=== PATIENT | female | born 1975 | race Caucasian/White ===

== ENCOUNTER 2019-08-31 09:30 | Emergency (ER) | payer BC ==
[2019-08-31] MEDS ORDERED: Acetaminophen/HYDROcodone 325-5 MG Tab PO ONE (09:59)
[2019-08-31] MEDS ORDERED: Ondansetron 4 MG Tab.DIS PO ONE (09:59)
--- NOTE | 2019-08-31 10:49 | EDM.PDOC ---
ED HPI GENERAL MEDICAL PROBLEM - General Chief Complaint: Headache Stated Complaint: HEAD AND BACK INJURY Time Seen by Provider: 08/31/19 09:51 Source of Information: Reports: Patient History Limitations: Reports: No Limitations - History of Present Illness INITIAL COMMENTS - FREE TEXT/NARRATIVE: The patient presents from the walk in clinic for a fall, headache, neck and low back pain. She was walking out to her garage at her apartment and she slipped on the ice and she landed on her buttock and head. She did have a positive LOC. She has a headache now with neck pain. She has low back pain. She had a lumbar fusion about 1 year ago. She also has some pain in her buttocks. She has left elbow pain. She has some nausea. She has no chest pain or abdominal pain. She has no numbness or weakness. Onset: Sudden Duration: Hour(s): Location: Reports: Head, Neck, Back Quality: Reports: Sharp Severity: Moderate Improves with: Reports: Immobilization Worsens with: Reports: Movement Context: Reports: Trauma (Slipped and fell on the ice) Associated Symptoms: Reports: Headaches, Nausea/Vomiting. Denies: Chest Pain, Cough, Fever/Chills, Shortness of Breath Headache Pain Score (Numeric/FACES): 8 - Related Data Allergies Allergy/AdvReac Type Severity Reaction Status Date / Time No Known Allergies Allergy Verified 08/31/19 09:50 Home Meds: Home Meds Ondansetron [Zofran ODT] 4 mg PO Q6H PRN #20 tab.dis 08/31/19 [Rx] Social & Family History - Tobacco Use Smoking Status *Q: Never Smoker ED ROS GENERAL - Review of Systems Review Of Systems: See Below Constitutional: Reports: No Symptoms HEENT: Reports: No Symptoms Respiratory: Reports: No Symptoms Cardiovascular: Reports: No Symptoms Endocrine: Reports: No Symptoms GI/Abdominal: Reports: Nausea. Denies: Abdominal Pain, Vomiting : Reports: No Symptoms Musculoskeletal: Reports: Neck Pain, Back Pain Skin: Reports: No Symptoms Neurological: Reports: Headache. Denies: Numbness, Weakness Psychiatric: Reports: No Symptoms ED EXAM, HEAD INJURY - Physical Exam Exam: See Below Exam Limited By: No Limitations General Appearance: Alert, No Apparent Distress Head: Other (Pain upon palpation and edema to the left occipital region) Eyes: Bilateral Eye: EOMI, PERRL Ears: Normal External Exam Nose: Normal Inspection Neck: Tenderness (pain upon palpation to the mid cervical spine) Respiratory: No Respiratory Distress, Lungs Clear, Normal Breath Sounds Cardiovascular: Regular Rate, Rhythm, No Edema, No Murmur GI/Abdominal Exam: Soft, Non-Tender, No Organomegaly, No Mass Back Exam: Other (Pain upon palpation to the lumbar spine into each buttock) Extremities: Other (Pain upon palpation to the left elbow with good sensation and pulses distally) Neurologic: No Motor/Sensory Deficits, Alert, Oriented x 3 Course - Vital Signs Last Recorded V/S: Last Vital Signs Temp 97.8 F 08/31/19 09:40 Pulse 79 08/31/19 09:40 Resp 16 08/31/19 09:40 BP 131/79 08/31/19 09:40 Pulse Ox 100 08/31/19 09:40 - Orders/Labs/Meds Meds: Medications Discontinued Medications Generic Name Dose Route Start Last Admin Trade Name Freq PRN Reason Stop Dose Admin Hydrocodone Bitart/Acetaminophen 2 tab 08/31/19 09:59 08/31/19 10:10 [place] 325-5 Mg PO 08/31/19 10:00 2 tab ONETIME ONE Administration Ondansetron HCl 4 mg 08/31/19 09:59 08/31/19 10:09 Zofran Odt PO 08/31/19 10:00 4 mg ONETIME ONE Administration - Re-Assessments/Exams Free Text/Narrative Re-Assessment/Exam: 08/31/19 10:48 I have ordered a CT of her head, cervical spine and lumbar spine with an x-ray of her left elbow. I also ordered some hydrocodone and zofran. 08/31/19 11:[address] of her lumbar spine shows mild degenerative change. Previous surgery at L4-L5. No acute fracture or acute subluxation is seen. The CT of her head shows sinus findings which are most likely chronic. No acute intracranial abnormality is appreciated. The CT of her head shows minimal degenerative change. Nothing acute is appreciated on CT study of the cervical spine. The x- ray of her elbow shows nothing acute. I feel she does have a concussion. Departure - Departure Time of Disposition: 11:45 Disposition: Home, Self-Care 01 Condition: Good Clinical Impression: Fall Qualifiers: Encounter type: initial encounter Qualified Code(s): W19.XXXA - Unspecified fall, initial encounter Head injury Qualifiers: Encounter type: initial encounter Qualified Code(s): S09.90XA - Unspecified injury of head, initial encounter Concussion Qualifiers: Encounter type: initial encounter Loss of consciousness presence/duration: with LOC of 30 min or less Qualified Code(s): S06.0X1A - Concussion with loss of consciousness of 30 minutes or less, initial encounter Cervical strain, acute Qualifiers: Encounter type: initial encounter Qualified Code(s): S16.1XXA - Strain of muscle, fascia and tendon at neck level, initial encounter Lumbar strain Qualifiers: Encounter type: initial encounter Qualified Code(s): S39.012A - Strain of muscle, fascia and tendon of lower back, initial encounter Contusion of left elbow Qualifiers: Encounter type: initial encounter Qualified Code(s): S50.02XA - Contusion of left elbow, initial encounter - Discharge Information *PRESCRIPTION DRUG MONITORING PROGRAM REVIEWED*: No *COPY OF PRESCRIPTION DRUG MONITORING REPORT IN PATIENT PRETTY: No Prescriptions: Ondansetron [Zofran ODT] 4 mg PO Q6H PRN #20 tab.dis PRN Reason: Nausea\vomiting Referrals: Bob Jurado MD [Primary Care Provider] - 1 Week Forms: ED Department Discharge, ED Return to Work/School Form Additional Instructions: Take motrin or tylenol for pain. Take the zofran every 6 hours as needed for nausea and vomiting. Rest and ice the areas that hurt for 15 minutes 3 times per day for 2 days. Please return if you are worse.
--- NOTE | 2019-08-31 11:07 | CT ---
Head CT Technique: Multiple axial sections through the brain were obtained. Intravenous contrast was not utilized. Comparison: No prior intracranial imaging is available. Findings: Ventricles along with basal cisterns and sulci over the convexities are within normal limits for the patient's age. Small cortical calcification is noted overlying the right parietal convexity. No abnormal parenchymal densities are otherwise seen. No evidence of intracranial hemorrhage. No midline shift or mass effect is seen. Bone window settings were reviewed which show mild mucosal thickening within the ethmoid and right maxillary sinus as well as left frontal sinus. No air-fluid levels are seen within the visualized sinuses. Visualized mastoid sinuses are clear. No acute calvarial abnormality is appreciated. Impression: 1. Sinus findings which are most likely chronic. 2. No acute intracranial abnormality is appreciated. Diagnostic code #2 This report was dictated in [place] Standard Time
--- NOTE | 2019-08-31 11:07 | CT ---
CT cervical spine Technique: Multiple axial sections were obtained from above C1 inferiorly to the top of T2. Reconstructed sagittal and coronal images were obtained. Comparison: No prior cervical spine imaging is available. Findings: Vertebral body heights and disc spaces are maintained. Minimal anterior osteophytes are seen at C6-C7. Vertebral bodies and posterior arches are intact. No fracture is seen. No bony central or bony neural foraminal stenosis is appreciated. No abnormal subluxation is appreciated. Impression: 1. Minimal degenerative change. 2. Nothing acute is appreciated on CT study of the cervical spine. Diagnostic code #2 This report was dictated in [place] Standard Time
--- NOTE | 2019-08-31 11:14 | CT ---
CT lumbar spine Technique: Multiple axial sections were obtained through the lumbar spine from above T12 vertebral body inferiorly through the L5-S1 disc. Findings: Previous surgery is noted L4-L5 with posterior laminectomy and transpedicle screws within L4 and L5. Scattered degenerative apophyseal change is noted throughout the lumbar spine. No central canal stenosis or neural foraminal stenosis is seen. No acute fracture is seen. No acute subluxation is seen. Impression: 1. Mild degenerative change. 2. Previous surgery at L4-L5. 3. No acute fracture or acute subluxation is seen. Diagnostic code #2 This report was dictated in [place] Standard Time
--- NOTE | 2019-08-31 11:30 | CR ---
Left elbow: Four views of the left elbow were obtained. Comparison: No previous elbow study. No joint effusion is seen. No fracture, dislocation or other bony abnormality is identified. Impression: 1. No abnormality is appreciated on the left elbow study. Diagnostic code #1 This report was dictated in [place] Standard Time
== END 2019-08-31 11:57 | disposition home or self-care (01) ==
LOC: JD.ED 09:30
DX: S06.0X1A Concussion with loss of consciousness of 30 minutes or less, initial encounter (principal); S16.1XXA Strain of muscle, fascia and tendon at neck level, initial encounter; S39.012A Strain of muscle, fascia and tendon of lower back, initial encounter; S50.02XA Contusion of left elbow, initial encounter; W00.0XXA Fall on same level due to ice and snow, initial encounter
CPT/HCPCS: 70450; 72125; 72131; 73080; 99284; A9270; 99283

== ENCOUNTER 2023-04-02 14:30 | Emergency (ER) | payer SELFPAY ==
[2023-04-02] MEDS ORDERED: Metoclopramide 10 MG/2 ML SDV IVPUSH ONE (15:16)
[2023-04-02] MEDS ORDERED: diphenhydrAMINE 50 MG/ML SDV IVPUSH ONE (15:16)
[2023-04-02] MEDS ORDERED: Sodium Chloride 0.9% 1,000 ML IV ONE ×2 (15:16→16:02)
[2023-04-02] MEDS ORDERED: Acetaminophen 325 MG Tab PO ONE (15:16)
[2023-04-02 15:48] LABS: BASOPHILS ABSOLUTE AUTO 0.02 K/mm3 (0.01-0.08); BASOPHILS PERCENT AUTO 0.2 % (0.1-1.2); HEMATOCRIT 34.9 % (34.1-44.9); HEMOGLOBIN 11.8 gm/dl (11.2-15.7); IMMATURE GRAN ABSOLUTE AUTO 0.02 K/mm3 (0.00-0.10); IMMATURE GRAN PERCENT AUTO 0.2 % (<=1.0); LYMPHOCYTES ABSOLUTE AUTO 2.12 K/mm3 (1.18-3.74); MEAN CORPUSCULAR HEMOGLOBIN 31.2 pg (25.6-32.2); MEAN CORPUSCULAR HGB CONC 33.8 g/dl (32.2-35.5); MEAN CORPUSCULAR VOLUME 92.3 fl (79.4-94.8); MEAN PLATELET VOLUME 9.7 fl (9.4-12.3); MONOCYTES ABSOLUTE AUTO 0.78 K/mm3 (0.24-0.36); MONOCYTES PERCENT AUTO 8.1 % (4.7-12.5); NEUTROPHILS ABSOLUTE AUTO 6.61 K/mm3 (1.56-6.13); NEUTROPHILS PERCENT AUTO 68.5 % (34.0-71.1); PLATELET COUNT,PLT 297 K/mm3 (182-369); RED BLOOD CELL COUNT 3.78 M/mm3 (3.98-5.22); WHITE BLOOD CELL COUNT,WBC 9.65 K/mm3 (3.98-10.04)
[2023-04-02 16:03] LABS: CALCIUM 8.8 mg/dL (8.5-10.1); CREATININE 0.7 mg/dL (0.55-1.02); EST CRCL DRUG DOSING (CG) 90.01 mL/min
[2023-04-02] MEDS ORDERED: Iopamidol 755 Mg/ML 100 ML Bottle IVPUSH ONE (16:23)
[2023-04-02 16:24] LABS: MAGNESIUM 2.2 mg/dL (1.8-2.4); TROPONIN I HIGH SENSITIVITY < 4 pg/mL (<=51)
[2023-04-02 16:25] LABS: C-REACTIVE PROTEIN <0.2 mg/dL (<1.0); TSH 1.247 uIU/mL (0.358-3.74)
[2023-04-02 16:48] LABS: APPEARANCE,URINE CLEAR (Clear); BILIRUBIN,URINE NEGATIVE (Negative); COLOR,URINE YELLOW (Yellow); GLUCOSE,URINE NEGATIVE (Negative); KETONES,URINE NEGATIVE (Negative); LEUKOCYTE ESTERASE,URINE NEGATIVE (Negative); NITRITE,URINE NEGATIVE (Negative); OCCULT BLOOD,URINE NEGATIVE (Negative); PROTEIN,URINE NEGATIVE (Negative); UROBILINOGEN,URINE 0.2 (0.2-1.0)
[2023-04-02 17:48] LABS: INR 0.96; PROTHROMBIN TIME 10.3 SECONDS (9.7-12.0)
[2023-04-02 17:50] LABS: PTT,PARTIAL THROMBOPLSTIN TIME 28.7 SECONDS (21.7-31.4)
[2023-04-02] MEDS ORDERED: Sodium Chloride 0.9% 1,000 ML IV SCH (18:45)
== END 2023-04-02 19:30 ==
LOC: JD.ED 14:30
DX: I77.74 Dissection of vertebral artery (principal); E87.1 Hypo-osmolality and hyponatremia
CPT/HCPCS: 36415; 70496; 70498; 71045; 80048; 81003; 83735; 84443; 84484; 85025; 85610; 85730; 86140; 93005; 96361; 96374; 99285; A9270; J2765; J7030; 93010; 99284